=== PATIENT | female | born 1995 | race Caucasian/White ===

== ENCOUNTER 2020-04-22 21:39 | Emergency (ER) | payer SELFPAY ==
--- NOTE | 2020-04-22 23:34 | EDM.PDOC ---
ED HPI GENERAL MEDICAL PROBLEM - General Chief Complaint: Upper Extremity Injury/Pain Stated Complaint: SHOULDER INJURY Time Seen by Provider: 04/22/20 23:03 - History of Present Illness INITIAL COMMENTS - FREE TEXT/NARRATIVE: 24-year-old female presents the emergency room with a right shoulder injury Shortly before arrival the patient tripped over 1 of her kids toys and fell against the wall with her right shoulder. Patient denies any other injury with this most unfortunate mishap. Patient has significant pain in this right shoulder and she is concerned it might be dislocated. Patient does not have a history of prior injuries to the shoulder. Right Shoulder Pain Score (Numeric/FACES): 8 - Related Data Allergies Allergy/AdvReac Type Severity Reaction Status Date / Time No Known Allergies Allergy Verified 04/22/20 22:07 Home Meds: Home Meds . 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: Social & Family History - Family History Family Medical History: Noncontributory - Tobacco Use Smoking Status *Q: Never Smoker Second Hand Smoke Exposure: No - Caffeine Use Caffeine Use: Reports: Coffee, Energy Drinks, Soda, Tea - Recreational Drug Use Recreational Drug Use: No Review of Systems - Review of Systems Review Of Systems: See Below Constitutional: Reports: No Symptoms Respiratory: Reports: No Symptoms Cardiovascular: Reports: No Symptoms GI/Abdominal: Reports: No Symptoms Genitourinary: Reports: No Symptoms Musculoskeletal: Reports: No Symptoms Neurological: Reports: No Symptoms ED EXAM, GENERAL - Physical Exam Exam: See Below Exam Limited By: No Limitations General Appearance: Alert, No Apparent Distress Head: Atraumatic, Normocephalic Neck: Normal Inspection, Supple, Non-Tender, Full Range of Motion. No: Lymphadenopathy (L), Lymphadenopathy (R) Respiratory/Chest: No Respiratory Distress, Lungs Clear, Normal Breath Sounds Cardiovascular: Regular Rate, Rhythm, No Edema, No Murmur Extremities: Other (Examination of her right upper extremity shows normal neurologic and vascular status of the hand and forearm. She has significant discomfort around the shoulder and does not want a move at the shoulder does not appear displaced dislocated. She is got a small bruise on the anterior aspect of the shoulder. Patient has intact supination pronation of the forearm at the elbow and wrist. Examination of the shoulders is very uncomfortable and not tolerated at this point I am able to distract the shoulder slightly and she does not have any pain over the AC joint.) Course - Vital Signs Last Recorded V/S: Last Vital Signs Temp 37.1 C 04/22/20 22:01 Pulse 88 04/22/20 22:01 Resp 20 04/22/20 22:01 BP 119/77 04/22/20 22:01 Pulse Ox 99 04/22/20 22:01 - Orders/Labs/Meds Orders: Active Orders 24 hr Category Date Time Status Shoulder Comp Rt [CR] Stat Exams 04/22/20 22:20 Taken HCG QUALITATIVE,URINE [URCHEM] Stat Lab 04/22/20 22:21 Ordered Durable Medical Equipment for Discharge [DME for Oth 04/22/20 23:28 Ordered Discharge] [COMM] Stat - Re-Assessments/Exams Free Text/Narrative Re-Assessment/Exam: 04/22/20 23:32 X-rays examination of the shoulder is negative for acute fracture dislocation she has some laxity it looks like at the AC joint. Patient will be placed in a sling advised to follow-up in the clinic for recheck after the tenderness dec reases. Departure - Departure Time of Disposition: 23:32 Disposition: Home, Self-Care 01 Clinical Impression: Right shoulder injury - Discharge Information Referrals: PCP,None [Primary Care Provider] - Additional Instructions: Return to the emergency room with any questions problems or worsening symptoms. Follow-up in the hospital clinic in 1 week for recheck call tomorrow for an appointment [phone] Tylenol or Motrin as needed for pain Wear the sling at all times.. Sepsis Event Note (ED) - Evaluation Sepsis Screening Result: No Definite Risk - Focused Exam Vital Signs: Vital Signs Temp Pulse Resp BP Pulse Ox 04/22/20 22:01 37.1 C 88 20 119/77 99 - My Orders Last 24 Hours: My Active Orders 04/22/20 23:28 Durable Medical Equipment for Discharge [DME for Discharge] [COMM] Stat - Assessment/Plan Last 24 Hours: My Active Orders 04/22/20 23:28 Durable Medical Equipment for Discharge [DME for Discharge] [COMM] Stat
--- NOTE | 2020-04-23 08:16 | CR ---
Right shoulder: 3 views of the right shoulder were obtained. Comparison: No prior shoulder study. Distal clavicle is slightly elevated at the acromioclavicular joint compatible with mild acromioclavicular separation. Glenohumeral joint appears normal. No acute fracture or other abnormality is appreciated. Impression: 1. Mild acromioclavicular separation. Please correlate if this is acute or chronic. 2. Right shoulder study is otherwise unremarkable. Diagnostic code #3 This report was dictated in MDT
== END 2020-04-23 00:20 | disposition home or self-care (01) ==
LOC: JD.ED 21:39
DX: S40.011A Contusion of right shoulder, initial encounter (principal); W01.198A Fall on same level from slipping, tripping and stumbling with subsequent striking against other object, initial encounter
CPT/HCPCS: 73030-26-RT; 73030-RT; 99283-25

== ENCOUNTER 2021-09-26 07:28 | Inpatient (IN) | payer SELFPAY ==
[2021-09-26] MEDS ORDERED: Nalbuphine 10 MG/1 ML Vial IVPUSH PRN (07:49)
[2021-09-26] MEDS ORDERED: Sodium Chloride 0.9% 10 ML Syringe FLUSH PRN (07:49)
[2021-09-26] MEDS ORDERED: Oxytocin/Lactated Ringers 10 UNIT/1,000 ML BAG IV SCH (08:00)
[2021-09-26] MEDS: Lactated Ringers 1,000 ML IV SCH ×3 (08:06→10:39)
[2021-09-26] MEDS ORDERED: Bupivacaine/fentaNYL/NS 100 ML Bag EPIDUR PRN (08:32)
[2021-09-26] MEDS ORDERED: ePHEDrine 50 MG/ML SDV IVPUSH PRN (08:32)
[2021-09-26] MEDS ORDERED: diphenhydrAMINE 50 MG/ML SDV IVPUSH PRN (08:32)
[2021-09-26] MEDS ORDERED: fentaNYL 100 MCG/2 ML SDV EPIDUR PRN (08:32)
--- NOTE | 2021-09-26 08:44 | PCM.PREANE ---
Preanesthetic Assessment - Procedure Proposed Procedure: Labor epidural - Anesthesia/Transfusion/Family Hx Anesthesia History: Prior Anesthesia Without Reaction Family History of Anesthesia Reaction: No Transfusion History: No Prior Transfusion(s) Intubation History: Unknown - Review of Systems General: No Symptoms Pulmonary: No Symptoms Cardiovascular: No Symptoms Gastrointestinal: Abdominal Pain (uterine contractions) Neurological: No Symptoms Other: Reports: None - Physical Assessment NPO Status Date: 09/25/21 NPO Status Time: 19:00 Vital Signs: Last Vital Signs Temp 97.6 F 09/26/21 07:34 Pulse 96 09/26/21 07:34 Resp 18 09/26/21 07:34 BP 120/78 09/26/21 07:34 Pulse Ox 96 09/26/21 07:34 Height: 1.6 m Weight: 69.4 kg ASA Class: 2 Mental Status: Alert & Oriented x3 Airway Class: Mallampati = 2 Dentition: Reports: Caries Thyro-Mental Finger Breadths: 3 Mouth Opening Finger Breadths: 3 ROM/Head Extension: Full Lungs: Clear to Auscultation, Normal Respiratory Effort Cardiovascular: Regular Rate, Regular Rhythm, No Murmurs - Lab Values: Laboratory Last Values WBC 14.64 K/mm3 (3.98-10.04) H 09/26/21 08:05 RBC 4.64 M/mm3 (3.98-5.22) 09/26/21 08:05 Hgb 12.5 gm/dl (11.2-15.7) 09/26/21 08:05 Hct 39.9 % (34.1-44.9) 09/26/21 08:05 MCV 86.0 fl (79.4-94.8) 09/26/21 08:05 MCH 26.9 pg (25.6-32.2) 09/26/21 08:05 MCHC 31.3 g/dl (32.2-35.5) L 09/26/21 08:05 RDW Std Deviation 41.7 fL (36.4-46.3) 09/26/21 08:05 Plt Count 130 K/mm3 (182-369) L 09/26/21 08:05 MPV 10.7 fl (9.4-12.3) 09/26/21 08:05 Neut % (Auto) 85.2 % (34.0-71.1) H 09/26/21 08:05 Lymph % (Auto) 7.2 % (19.3-51.7) L 09/26/21 08:05 [place] % (Auto) 7.2 % (4.7-12.5) 09/26/21 08:05 Eos % (Auto) 0 (0.7-5.8) L 09/26/21 08:05 Baso % (Auto) 0.1 % (0.1-1.2) 09/26/21 08:05 Neut # (Auto) 12.46 K/mm3 (1.56-6.13) H 09/26/21 08:05 Lymph # (Auto) 1.06 K/mm3 (1.18-3.74) L 09/26/21 08:05 [place] # (Auto) 1.05 K/mm3 (0.24-0.36) H 09/26/21 08:05 Eos # (Auto) 0.00 K/mm3 (0.04-0.36) L 09/26/21 08:05 Baso # (Auto) 0.02 K/mm3 (0.01-0.08) 09/26/21 08:05 - Allergies Allergies/Adverse Reactions: Allergies Allergy/AdvReac Type Severity Reaction Status Date / Time No Known Allergies Allergy Verified 09/26/21 07:33 - Acknowledgements Anesthesia Type Planned: Epidural Pt an Appropriate Candidate for the Planned Anesthesia: Yes Alternatives and Risks of Anesthesia Discussed w Pt/Guardian: Yes Pt/Guardian Understands and Agrees with Anesthesia Plan: Yes PreAnesthesia Questionnaire HEENT History: Reports: Impaired Vision Cardiovascular History: Reports: None Respiratory History: Reports: None Gastrointestinal History: Reports: GERD Genitourinary History: Reports: None 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 OB/BYN History: Previous csection in 2018 Musculoskeletal History: Reports: None Neurological History: Reports: None Psychiatric History: Reports: None Endocrine/Metabolic History: Reports: None Hematologic History: Reports: Iron Deficiency, Other (See Below) Other Hematologic History: Low platelets Immunologic History: Reports: None Oncologic (Cancer) History: Reports: None Dermatologic History: Reports: None - Infectious Disease History Infectious Disease History: Reports: None - Past Surgical History Female Surgical History: Reports: Section - SUBSTANCE USE Tobacco Use Status *Q: Never Tobacco User Tobacco Use Within Last Twelve Months: No Second Hand Smoke Exposure: No Days Per Week of Alcohol Use: 0 Number of Drinks Per Day: 0 Total Drinks Per Week: 0 Recreational Drug Use History: No - HOME MEDS Home Medications: Home Meds Mv-Mn/Iron/FA/Herbal/Digestive [ One Tablet] 1 each PO DAILY 06/15/21 [History] - CURRENT (IN HOUSE) MEDS Current Meds: Current Medications Diphenhydramine HCl (Diphenhydramine 50 Mg/Ml Sdv) 25 mg IVPUSH Q6H PRN PRN Reason: pruritis Ephedrine Sulfate (Ephedrine 50 Mg/Ml Sdv) 5 mg IVPUSH ASDIRECTED PRN PRN Reason: Hypotension Fentanyl (Fentanyl 100 Mcg/2 Ml Sdv) 100 mcg EPIDUR Q3H PRN PRN Reason: Pain Fentanyl/Bupivacaine HCl (Bupivacaine/Fentanyl/Ns 100 Ml Bag) 100 ml EPIDUR ASDIRECTED PRN PRN Reason: Pain Lactated Ringer's (Ringers, Lactated) 1,000 mls @ 100 mls/hr IV ASDIRECTED GAVIN Last Admin: 09/26/21 08:06 Dose: 999 mls/hr Documented by: Oxytocin/Lactated Ringer's (Pitocin In Lr 10 Units/1,000 Ml) 10 unit in 1,000 mls @ 500 mls/hr IV .CONTINUOUS GAVIN Nalbuphine HCl (Nalbuphine 10 Mg/1 Ml Vial) 10 mg IVPUSH Q2H PRN PRN Reason: Pain Sodium Chloride (Sodium Chloride 0.9% 10 Ml Syringe) 10 ml FLUSH ASDIRECTED PRN PRN Reason: Keep Vein Open
--- NOTE | 2021-09-26 10:27 | PCM.LDHP ---
<Sarah Quintanilla - Last Filed: 09/26/21 09:55> L&D History of Present Illness - General Date of Service: 09/26/21 Admit Problem/Dx: Patient Status Order with Admit Dx/Problem 09/26/21 07:34 Patient Status [ADT] Routine 09/26/21 07:50 Patient Status [ADT] Routine Admission Diagnosis/Problem Admission Diagnosis/Problem Source of Information: Patient History Limitations: Reports: No Limitations - History of Present Illness Introduction:: Adalgisa is a 25 year old 4 para 1-1-1-2 female admitted this morning on 09/26/21 at 38 weeks 3 days gestational age with an JANETT of 10/07/21 based on exact LMP of 12/31/20. She began having contractions on and off yesterday, and this morning around 4 am, they became much stronger and more consistent. She arrived to the labor and delivery floor around 7:30 am. Aside from lower back and abdominal pain, she feels well. She has had regular care with Dr. Morgan. [employer]OR history: - patient has a history of , , and spontaneous . She recalls menarche in approximately fifth grade. She was not on contraception prior to this , and she had regular periods. LMP 12/31/20. Her due date is 10/07/21 based up LMP and supported by ultrasound performed on 03/18/21. Past obstetrics history: 1. 03/09/2018: male (Marcin) born 40w4d at 8lb 1oz via delivery for failure to progress - [facility] 2. 02/14/2019: male infant (Jamie) born 32w1d at 4lb 10oz via - no reason elucidated for labor - [facility] . 01/2020: SAB 4. Current course: Initially seen at 5w on 02/04/21, and seen on a regular basis following this. Vitals, fundal height, heart, and weight gain (28 lbs) all appropriate throughout . Blood type: O+ Antibody screen: negative Urine culture: negative Rubella status: equivocal Hepatitis B surface antigen: NR RPR: NR Hepatitis C: NR HIV: NR Gonorrhea: negative Chlamydia: positive on 03/18; negative on 05/19 Genetic testing: declined Anatomy ultrasound: done 03/18/21 One hour glucose tolerance test: 115 Hemoglobin: 14 --> 12.1 --> 11.8 (09/07/21) Platelets: 175 --> 124 --> 127 (09/07/21) GBS Status: negative Allergies: 1. No known allergies Medications: 1. Daily vitamin Past medical history: 1. Myopia of both eyes 2. Rubella non-immune status Past surgical history: 1. in 2018 Family history: Two siblings - 1 brother with thyroid disease and 1 sister with T1DM. Thyroid disease in mother and hypertension in father. Maternal grandparents are both , sometime in their 80s from cancer. Paternal grandfather is . Paternal grandmother is alive with dementia. No known problems regarding blood disorders, problems with in other family members. Social history: Patient's significant other is Tim. They live in [place]. Patient denies alcohol, drugs, and tobacco use. Review of systems: Positive for lower back and abdominal pain, but otherwise a comprehensive ROS is negative, including HEENT complaints, cough, shortness of breath, chest pain, extremity swelling, headaches. Physical Exam: General: well-developed, well-nourished, pleasant, gravid female Skin: warm, dry, no lesions HEENT, neck, and back within normal limits Lungs: clear to auscultation bilaterally CV: regular rate and rhythm without murmurs Abdomen: gravid Genital digital exam: 6 cm dilated, 100% effaced, soft, anterior, 0 station, cephalic presentation; AROM done with clear fluids Extremities: no edema, SCDs in place Neuro: no focal deficits noted Pain Score: 10 - Related Data Allergies/Adverse Reactions: Allergies Allergy/AdvReac Type Severity Reaction Status Date / Time No Known Allergies Allergy Verified 09/26/21 07:33 Home Medications: Home Meds Mv-Mn/Iron/FA/Herbal/Digestive [ One Tablet] 1 each PO DAILY 06/15/21 [History] Past Medical History HEENT History: Reports: Impaired Vision Cardiovascular History: Reports: None Respiratory History: Reports: None Gastrointestinal History: Reports: GERD Genitourinary History: Reports: None ELEMENT[employer] S[employer] 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 OB/BYN History: Previous csection in 2018 Musculoskeletal History: Reports: None Neurological History: Reports: None Psychiatric History: Reports: None Endocrine/Metabolic History: Reports: None Hematologic History: Reports: Iron Deficiency, Other (See Below) Other Hematologic History: Low platelets Immunologic History: Reports: None Oncologic (Cancer) History: Reports: None Dermatologic History: Reports: None - Infectious Disease History Infectious Disease History: Reports: None - Past Surgical History Female Surgical History: Reports: Section Social & Family History - Family History Family Medical History: No Pertinent Family History - Tobacco Use Tobacco Use Status *Q: Never Tobacco User Second Hand Smoke Exposure: No - Caffeine Use Caffeine Use: Reports: Coffee, Energy Drinks, Soda, Tea - Alcohol Use Days Per Week of Alcohol Use: 0 Number of Drinks Per Day: 0 Total Drinks Per Week: 0 - Recreational Drug Use Recreational Drug Use: No H&P Review of Systems - Review of Systems: Review Of Systems: See Below L&D Exam - Exam Exam: See Below - Vital Signs Vital Signs: Last Vital Signs Temp 97.6 F 09/26/21 07:34 Pulse 96 09/26/21 07:34 Resp 18 09/26/21 07:34 BP 120/78 09/26/21 07:34 Pulse Ox 96 09/26/21 07:34 Weight: 69.4 kg - Patient Data Lab Results Last 24 hrs: Laboratory Results - last 24 hr 09/26/21 09/26/21 09/26/21 Range/Units 07:42 08:05 08:05 WBC 14.64 H (3.98-10.04) K/mm3 RBC 4.64 (3.98-5.22) M/mm3 Hgb 12.5 (11.2-15.7) gm/dl Hct 39.9 (34.1-44.9) % MCV 86.0 (79.4-94.8) fl MCH 26.9 (25.6-32.2) pg MCHC 31.3 L (32.2-35.5) g/dl RDW Std Deviation 41.7 (36.4-46.3) fL Plt Count 130 L (182-369) K/mm3 MPV 10.7 (9.4-12.3) fl Neut % (Auto) 85.2 H (34.0-71.1) % Lymph % (Auto) 7.2 L (19.3-51.7) % Sawyer % (Auto) 7.2 (4.7-12.5) % Eos % (Auto) 0 L (0.7-5.8) Baso % (Auto) 0.1 (0.1-1.2) % Neut # (Auto) 12.46 H (1.56-6.13) K/mm3 Lymph # (Auto) 1.06 L (1.18-3.74) K/mm3 Sawyer # (Auto) 1.05 H (0.24-0.36) K/mm3 Eos # (Auto) 0.00 L (0.04-0.36) K/mm3 Baso # (Auto) 0.02 (0.01-0.08) K/mm3 SARS-CoV-2 RNA (JORGE) Negative (NEGATIVE) Blood Type O POSITIVE Gel Antibody Screen Negative Result Diagrams: 09/26/21 08:05 - Problem List (1) 38 weeks gestation of SNOMED Code(s): 02155195 ICD Code: Z3A.38 - 38 WEEKS GESTATION OF Status: Acute Current Visit: Yes (2) History of delivery SNOMED Code(s): 645670005 ICD Code: Z98.891 - HISTORY OF UTERINE SCAR FROM PREVIOUS SURGERY Status: Acute Current Visit: Yes (3) History of labor SNOMED Code(s): 398915832 ICD Code: Z87.51 - PERSONAL HISTORY OF PRE-TERM LABOR Status: Acute Current Visit: Yes (4) Hx successful (vaginal after ), currently SNOMED Code(s): 809057185, 635024079, 865047550 ICD Code: O34.219 - MATERNAL CARE FOR UNSP TYPE SCAR FROM PREVIOUS DEL Status: Acute Current Visit: Yes (5) Rubella non-immune status, antepartum SNOMED Code(s): 763055028 ICD Code: O99.891 - OTH DISEASES AND CONDITIONS COMPLICATING ; Z28.3 - UNDERIMMUNIZATION STATUS Status: Acute Current Visit: Yes Problem List Initiated/Reviewed/Updated: Yes Orders Last 24hrs: Active Orders 24 hr Category Date Time Status Patient Status [ADT] Routine ADT 09/26/21 07:50 Active Activity as Tolerated [RC] PFP Care 09/26/21 07:49 Active Antiembolic Devices [RC] PER UNIT ROUTINE Care 09/26/21 09:42 Active Communication Order [RC] ASDIRECTED Care 09/26/21 07:49 Active Heart Tones [RC] ASDIRECTED Care 09/26/21 07:50 Active Monitoring [RC] CONTINUOUS Care 09/26/21 07:52 Active Non Stress Test [RC] PER UNIT ROUTINE Care 09/26/21 07:34 Active Notify Provider [RC] ASDIRECTED Care 09/26/21 08:32 Active Notify Provider [RC] PFP Care 09/26/21 07:49 Active Notify Provider [RC] PRN Care 09/26/21 07:49 Active Peripheral IV Care [RC] . DIRECTED Care 09/26/21 07:50 Active Urinary Catheter Assessment [RC] ASDIRECTED Care 09/26/21 09:42 Active Urinary Catheter Insertion [Insert Urinary Catheter] [ Care 09/26/21 09:45 Ordered OM.PC] Q24H Verify Patient Consent Obtain [RC] ASDIRECTED Care 09/26/21 07:51 Active Vital Signs [RC] PER UNIT ROUTINE Care 09/26/21 07:34 Active Regular Diet [DIET] Diet 09/26/21 Breakfast Active RAPID PLASMA REAGIN,RPR [CHEM] Routine Lab 09/26/21 08:05 Received Bupivacaine/fentaNYL/NS [fentaNYL/Bupivacaine/NS 2 MCG- Med 09/26/21 08:32 Active 0.125% 100 ML] 100 ml EPIDUR ASDIRECTED PRN Lactated Ringers [Ringers, Lactated] 1,000 ml Med 09/26/21 08:00 Active IV ASDIRECTED Nalbuphine [Nubain] Med 09/26/21 07:49 Active 10 mg IVPUSH Q2H PRN Oxytocin/Lactated Ringers [Pitocin in LR 10 Units/1,000 Med 09/26/21 08:00 Active ML] 10 unit in 1,000 ml IV .CONTINUOUS Sodium Chloride 0.9% [Saline Flush] Med 09/26/21 07:49 Active 10 ml FLUSH ASDIRECTED PRN diphenhydrAMINE [Benadryl] Med 09/26/21 08:32 Active 25 mg IVPUSH Q6H PRN ePHEDrine [ePHEDrine sulfate] Med 09/26/21 08:32 Active 5 mg IVPUSH ASDIRECTED PRN fentaNYL [Sublimaze] Med 09/26/21 08:32 Active 100 mcg EPIDUR Q3H PRN Electronic Heart Tones Ext w TOCO [WOMSER] Oth 09/26/21 07:49 Ordered Routine Electronic Heart Tones Internal [WOMSER] Per Unit Oth 09/26/21 07:49 Ordered Routine Peripheral IV Insertion Adult [OM.PC] Routine Oth 09/26/21 07:49 Ordered SCD [Sequential Compression Device] [OM.PC] Routine Oth 09/26/21 09:42 Ordered Resuscitation Status Routine Resus Stat 09/26/21 07:34 Ordered Medication Orders Diphenhydramine HCl (Diphenhydramine 50 Mg/Ml Sdv) 25 mg IVPUSH Q6H PRN PRN Reason: pruritis Ephedrine Sulfate (Ephedrine 50 Mg/Ml Sdv) 5 mg IVPUSH ASDIRECTED PRN PRN Reason: Hypotension Fentanyl (Fentanyl 100 Mcg/2 Ml Sdv) 100 mcg EPIDUR Q3H PRN PRN Reason: Pain Last Admin: 09/26/21 08:47 Dose: 100 mcg Documented by: NORA Fentanyl/Bupivacaine HCl (Bupivacaine/Fentanyl/Ns 100 Ml Bag) 100 ml EPIDUR ASDIRECTED PRN PRN Reason: Pain Last Admin: 09/26/21 08:48 Dose: 100 ml Documented by: NORA Lactated Ringer's (Ringers, Lactated) 1,000 mls @ 100 mls/hr IV ASDIRECTED GAVIN Last Admin: 09/26/21 08:49 Dose: 999 mls/hr Documented by: Infusion: 09/26/21 08:49 Dose: 999 mls/hr Documented by: Admin: 09/26/21 08:06 Dose: 999 mls/hr Documented by: NORA Oxytocin/Lactated Ringer's (Pitocin In Lr 10 Units/1,000 Ml) 10 unit in 1,000 mls @ 500 mls/hr IV .CONTINUOUS GAVIN Nalbuphine HCl (Nalbuphine 10 Mg/1 Ml Vial) 10 mg IVPUSH Q2H PRN PRN Reason: Pain Sodium Chloride (Sodium Chloride 0.9% 10 Ml Syringe) 10 ml FLUSH ASDIRECTED PRN PRN Reason: Keep Vein Open Assessment/Plan Comment:: Assessment: 1Jake Diana is a 25 year old 4 para 1-1-1-2 female admitted the morning of 09/26/21 at 38 weeks 3 days gestational age with an JANETT of 10/07/21 based on exact LMP of 12/31/20 2. History of and subsequent 3. Rubella non-immune status 4. Desires epidural 5. Plans to breastfeed Plan: 1. Admit for labor at 38w3d. AROM done at approximately 9:30 am with clear fluids. Near continuous monitoring of heart tones. Routine labor care. 2. Proceed with TOLAC. Discussed this process and risks at length. 3. Plan to immunize following delivery. 4. Epidural in place. Pain management as needed. <Malachi Perera F - Last Filed: 09/26/21 14:13> L&D History of Present Illness - General Admit Problem/Dx: Patient Status Order with Admit Dx/Problem 09/26/21 07:34 Patient Status [ADT] Routine 09/26/21 07:50 Patient Status [ADT] Routine Admission Diagnosis/Problem Admission Diagnosis/Problem H&P Review of Systems - Review of Systems: Review Of Systems: See Below L&D Exam - Exam Exam: See Below - Vital Signs Vital Signs: Last Vital Signs Temp 36.4 C 09/26/21 07:34 Pulse 96 09/26/21 07:34 Resp 18 09/26/21 07:34 BP 120/78 09/26/21 07:34 Pulse Ox 96 09/26/21 07:34 - Patient Data Lab Results Last 24 hrs: Laboratory Results - last 24 hr 09/26/21 09/26/21 09/26/21 Range/Units 07:42 08:05 08:05 WBC 14.64 H (3.98-10.04) K/mm3 RBC 4.64 (3.98-5.22) M/mm3 Hgb 12.5 (11.2-15.7) gm/dl Hct 39.9 (34.1-44.9) % MCV 86.0 (79.4-94.8) fl MCH 26.9 (25.6-32.2) pg MCHC 31.3 L (32.2-35.5) g/dl RDW Std Deviation 41.7 (36.4-46.3) fL Plt Count 130 L (182-369) K/mm3 MPV 10.7 (9.4-12.3) fl Neut % (Auto) 85.2 H (34.0-71.1) % Lymph % (Auto) 7.2 L (19.3-51.7) % Sawyer % (Auto) 7.2 (4.7-12.5) % Eos % (Auto) 0 L (0.7-5.8) Baso % (Auto) 0.1 (0.1-1.2) % Neut # (Auto) 12.46 H (1.56-6.13) K/mm3 Lymph # (Auto) 1.06 L (1.18-3.74) K/mm3 Sawyer # (Auto) 1.05 H (0.24-0.36) K/mm3 Eos # (Auto) 0.00 L (0.04-0.36) K/mm3 Baso # (Auto) 0.02 (0.01-0.08) K/mm3 SARS-CoV-2 RNA (JORGE) Negative (NEGATIVE) Blood Type O POSITIVE Gel Antibody Screen Negative Result Diagrams: 09/26/21 08:05 Orders Last 24hrs: Active Orders 24 hr Category Date Time Status Patient Status Manage Transfer [TRANSFER] Routine ADT 09/26/21 14:10 Ordered Patient Status [ADT] Routine ADT 09/26/21 07:50 Active Activity as Tolerated [RC] PFP Care 09/26/21 07:49 Active Antiembolic Devices [RC] PER UNIT ROUTINE Care 09/26/21 09:42 Active Communication Order [RC] ASDIRECTED Care 09/26/21 07:49 Active Heart Tones [RC] ASDIRECTED Care 09/26/21 07:50 Active Monitoring [RC] CONTINUOUS Care 09/26/21 07:52 Active Non Stress Test [RC] PER UNIT ROUTINE Care 09/26/21 07:34 Active Notify Provider [RC] ASDIRECTED Care 09/26/21 08:32 Active Notify Provider [RC] PFP Care 09/26/21 07:49 Active Notify Provider [RC] PRN Care 09/26/21 07:49 Active Peripheral IV Care [RC] . DIRECTED Care 09/26/21 07:50 Active Urinary Catheter Assessment [RC] ASDIRECTED Care 09/26/21 09:42 Active Urinary Catheter Insertion [Insert Urinary Catheter] [ Care 09/26/21 09:45 Ordered OM.PC] Q24H Verify Patient Consent Obtain [RC] ASDIRECTED Care 09/26/21 07:51 Active Vital Signs [RC] PER UNIT ROUTINE Care 09/26/21 07:34 Active Regular Diet [DIET] Diet 09/26/21 Breakfast Active RAPID PLASMA REAGIN,RPR [CHEM] Routine Lab 09/26/21 08:05 Received Benzocaine/Menthol [Dermoplast Pain Relief 20%-0.5% Med 09/26/21 13:25 Active [place]] 0 gm TOP ASDIRECTED PRN Bupivacaine/fentaNYL/NS [fentaNYL/Bupivacaine/NS 2 MCG- Med 09/26/21 08:32 Active 0.125% 100 ML] 100 ml EPIDUR ASDIRECTED PRN Lactated Ringers [Ringers, Lactated] 1,000 ml Med 09/26/21 08:00 Active IV ASDIRECTED Nalbuphine [Nubain] Med 09/26/21 07:49 Active 10 mg IVPUSH Q2H PRN Oxytocin/Lactated Ringers [Pitocin in LR 10 Units/1,000 Med 09/26/21 08:00 Active ML] 10 unit in 1,000 ml IV .CONTINUOUS Sodium Chloride 0.9% [Saline Flush] Med 09/26/21 07:49 Active 10 ml FLUSH ASDIRECTED PRN diphenhydrAMINE [Benadryl] Med 09/26/21 08:32 Active 25 mg IVPUSH Q6H PRN ePHEDrine [ePHEDrine sulfate] Med 09/26/21 08:32 Active 5 mg IVPUSH ASDIRECTED PRN fentaNYL [Sublimaze] Med 09/26/21 08:32 Active 100 mcg EPIDUR Q3H PRN witch Arianne [Tucks] Med 09/26/21 13:24 Active 1 pad TOP ASDIRECTED PRN Electronic Heart Tones Ext w TOCO [WOMSER] Oth 09/26/21 07:49 Ordered Routine Electronic Heart Tones Internal [WOMSER] Per Unit Oth 09/26/21 07:49 Ordered Routine Peripheral IV Insertion Adult [OM.PC] Routine Oth 09/26/21 07:49 Ordered SCD [Sequential Compression Device] [OM.PC] Routine Oth 09/26/21 09:42 Ordered Resuscitation Status Routine Resus Stat 09/26/21 07:34 Ordered Medication Orders Benzocaine/Menthol (Benzocaine/Menthol 20%-0.5% [place] 78 Gm Cannister) 0 gm TOP ASDIRECTED PRN PRN Reason: Pain Diphenhydramine HCl (Diphenhydramine 50 Mg/Ml Sdv) 25 mg IVPUSH Q6H PRN PRN Reason: pruritis Ephedrine Sulfate (Ephedrine 50 Mg/Ml Sdv) 5 mg IVPUSH ASDIRECTED PRN PRN Reason: Hypotension Fentanyl (Fentanyl 100 Mcg/2 Ml Sdv) 100 mcg EPIDUR Q3H PRN PRN Reason: Pain Last Admin: 09/26/21 08:47 Dose: 100 mcg Documented by: NORA Fentanyl/Bupivacaine HCl (Bupivacaine/Fentanyl/Ns 100 Ml Bag) 100 ml EPIDUR ASDIRECTED PRN PRN Reason: Pain Last Admin: 09/26/21 08:48 Dose: 100 ml Documented by: NORA Lactated Ringer's (Ringers, Lactated) 1,000 mls @ 100 mls/hr IV ASDIRECTED GAVIN Last Admin: 09/26/21 10:39 Dose: 100 mls/hr Documented by: Infusion: 09/26/21 09:50 Dose: 100 mls/hr Documented by: Admin: 09/26/21 08:49 Dose: 999 mls/hr Documented by: Infusion: 09/26/21 08:49 Dose: 999 mls/hr Documented by: Admin: 09/26/21 08:06 Dose: 999 mls/hr Documented by: NORA Oxytocin/Lactated Ringer's (Pitocin In Lr 10 Units/1,000 Ml) 10 unit in 1,000 mls @ 500 mls/hr IV .CONTINUOUS GAVIN Last Admin: 09/26/21 11:26 Dose: 500 mls/hr Documented by: NORA Nalbuphine HCl (Nalbuphine 10 Mg/1 Ml Vial) 10 mg IVPUSH Q2H PRN PRN Reason: Pain Sodium Chloride (Sodium Chloride 0.9% 10 Ml Syringe) 10 ml FLUSH ASDIRECTED PRN PRN Reason: Keep Vein Open Jose Acuña (Jose Rubalcavael Medicated Pads 40/Jar) 1 pad TOP ASDIRECTED PRN PRN Reason: Hemorrhoids
[2021-09-26] MEDS ORDERED: Witch Hazel Medicated Pads 40/Jar TOP PRN (13:24)
[2021-09-26] MEDS ORDERED: Benzocaine/Menthol 20%-0.5% Spray 78 GM Cannister TOP PRN ×2 (13:25→14:39)
--- NOTE | 2021-09-26 14:22 | PCM.SN.2 ---
- Free Text/Narrative Note: Delivery note: Stage I: Adalgisa is a 25 year old 4 now para 2-1-1-3 female admitted this morning on 09/26/21 at 38 weeks 3 days gestational age with an JANETT of 10/07/21 based on exact LMP of 12/31/20 and supported by an early ultrasound. She has some occasional contractions throughout the last 24 hours but at approximately 0400 hrs. this a.m. patient had increasing labor and upon admission to L&D was noted to have contractions every 3 to 5 minutes. They were moderate in intensity. Patient cervix had changed from 3 cm on last evaluation clinic to 4 cm, 0 station, anterior position, 100% effaced, bulging bag earl. heart tones were generally reassuring. Patient was uncomfortable with contractions and was desiring epidural. Epidural was placed without problems with good results. Patient has a history of previous section with her first for CPD with an 8 pound 11 ounce baby. She had a successful with her second . Risk factors for the included history of section, history of delivery at 32 weeks. Her rubella status is equivocal. Group B strep screen was negative. Patient was allowed to progress in labor. Epidural was followed by AROM with resultant clear amniotic fluid. At approximately 1100 hrs. patient achieved complete cervical dilation. Some variable decelerations were noted and were progressive in nature. Some decelerations in between contractions were down to a 60 to 80 bpm range. Consent had been signed for a trial of labor after section for attempt at vaginal after section and for repeat section if it was to be necessary. Preoperative laboratory testing was done. Patient had near continuous electronic heart rate monitoring. Anesthesia was aware of the patient's presence in labor and delivery. Stage II: At 1124 hrs. on 09/26/2021 patient underwent a vacuum extraction delivery for persistent significant decelerations that were not returning to baseline. Prior to vacuum extraction delivery the procedure, its risk, benefits, alternatives of care were discussed with the patient and her significant other. They appear to understand and wished to proceed. A Silastic vacuum extractor was placed and with 1 contraction patient delivered a viable, dalton, male with Apgars of 8 and 9, a weight of 3170 g (6 pounds 15.8 ounces) and a length of 20.5 inches in a left occiput anterior position over an intact perineum. Pitocin was increased to 500/h with the routine solution concentration. This to facilitate increase in uterine tone and decrease likelihood of bleeding. Baby was placed on mom's abdomen. The umbilical cord is allowed to pulsate for approximately 3 minutes and then was clamped x2 and cut by the baby's father Tim. Umbilical cord had 3 vessels. Cord blood was obtained. Evaluation showed no evidence of significant lacerations and no suturing was required. Stage III: Adalgisa delivered the placenta at 1128 hrs. in a Chau presentation. It appeared intact and complete and was discarded per patient desire. Estimated blood loss was 200 cc. Patient plans to breast-feed. She received a MsJake Irvin immunization prior to discharge from the hospital. Condition: Good.
[2021-09-26] MEDS ORDERED: Acetaminophen 325 MG Tab PO PRN (14:39)
[2021-09-26] MEDS ORDERED: Docusate Sodium 100 MG Cap PO PRN (14:39)
[2021-09-26] MEDS: Ibuprofen 600 MG Tab PO PRN ×2 (15:27→20:34)
[2021-09-26] MEDS: Witch Hazel Medicated Pads 40/Jar TOP PRN (15:28)
[2021-09-26] MEDS ORDERED: Bupivacaine 0.25% 10 ML SDV ONE (17:00)
[2021-09-26] MEDS ORDERED: Calcium Carbonate 500 MG Tab.Chew PO PRN (19:07)
[2021-09-27] MEDS: Ibuprofen 600 MG Tab PO PRN ×2 (01:07→06:33)
--- NOTE | 2021-09-27 07:49 | PCM48HPAN ---
Post Anesthesia Note - EVALUATION WITHIN 48HRS OF ANESTHETIC Vital Signs in Normal Range: Yes Patient Participated in Evaluation: Yes Respiratory Function Stable: Yes Airway Patent: Yes Cardiovascular Function Stable: Yes Hydration Status Stable: Yes Pain Control Satisfactory: Yes Nausea and Vomiting Control Satisfactory: Yes Mental Status Recovered: Yes Vital Signs: Last Vital Signs Temp 97.9 F 09/27/21 04:27 Pulse 84 09/27/21 04:27 Resp 14 09/27/21 04:27 BP 110/71 09/27/21 04:27 Pulse Ox 99 09/27/21 04:27 - COMMENTS/OBSERVATIONS Free Text/Narrative:: Patient resting in bed holding baby when visiting with patient. Patient stated that she was "very happy" with her epidural and labor experience. Patient denied back pain in epidural placement site. Discussed signs and symptoms of infection, post-dural puncture headaches, post- depression, and if patient experiences increased back discomfort. Encouraged patient if any of those signs or symptoms develop to contact OB/Anesthesia so the patient can be treated accordingly if needed. Patient verbalized understanding. Patient did not voice any questions or concerns at this time. Karolina Aguilar, [facility]
[2021-09-27] MEDS ORDERED: Prenatal Multivitamin with Calcium/Folic Acid/Iron Tab PO SCH (09:00)
[2021-09-27] MEDS: Witch Hazel Medicated Pads 40/Jar TOP PRN (09:46)
--- NOTE | 2021-09-27 13:10 | PCM.DCSUM1 ---
Discharge Summary - Hospital Course Free Text/Narrative:: Stage I: Adalgisa is a 25 year old 4 now para 2-1-1-3 female admitted this morning on 09/26/21 at 38 weeks 3 days gestational age with an JANETT of 10/07/21 based on exact LMP of 12/31/20 and supported by an early ultrasound. She has some occasional contractions throughout the last 24 hours but at approximately 0400 hrs. this a.m. patient had increasing labor and upon admission to L&D was noted to have contractions every 3 to 5 minutes. They were moderate in intensity. Patient cervix had changed from 3 cm on last evaluation clinic to 4 cm, 0 station, anterior position, 100% effaced, bulging bag earl. heart tones were generally reassuring. Patient was uncomfortable with contractions and was desiring epidural. Epidural was placed without problems with good results. Patient has a history of previous section with her first for CPD with an 8 pound 11 ounce baby. She had a successful with her second . Risk factors for the included history of section, history of delivery at 32 weeks. Her rubella status is equivocal. Group B strep screen was negative. Patient was allowed to progress in labor. Epidural was followed by [facility]OM with resultant clear amniotic fluid. At approximately 1100 hrs. patient achieved complete cervical dilation. Some variable decelerations were noted and were progressive in nature. Some decelerations in between contractions were down to a 60 to 80 bpm range. Consent had been signed for a trial of labor after section for attempt at vaginal after section and for repeat section if it was to be necessary. Preoperative laboratory testing was done. Patient had near continuous electronic heart rate monitoring. Anesthesia was aware of the patient's presence in labor and delivery. Stage II: At 1124 hrs. on 09/26/2021 patient underwent a vacuum extraction delivery for persistent significant decelerations that were not returning to baseline. Prior to vacuum extraction delivery the procedure, its risk, benefits, alternatives of care were discussed with the patient and her significant other. They appear to understand and wished to proceed. A Silastic vacuum extractor was placed and with 1 contraction patient delivered a viable, dalton, male infant with Apgars of 8 and 9, a weight of 3170 g (6 pounds 15.8 ounces) and a length of 20.5 inches in a left occiput anterior position over an intact perineum. Pitocin was increased to 500/h with the routine solution concentration. This to facilitate increase in uterine tone and decrease likelihood of bleeding. Baby was placed on mom's abdomen. The umbilical cord is allowed to pulsate for approximately 3 minutes and then was clamped x2 and cut by the baby's father Tim. Umbilical cord had 3 vessels. Cord blood was obtained. Evaluation showed no evidence of significant lacerations and no suturing was required. Stage III: Adalgisa delivered the placenta at 1128 hrs. in a Chau presentation. It appeared intact and complete and was discarded per patient desire. Estimated blood loss was 200 cc. Patient plans to breast-feed. She will receive an MMR immunization prior to discharge from the hospital. patient's vital signs are stable. She is afebrile. She has minimal lochia. She is nursing without problems. She has a history of nursing with her previous pregnancies. Is desiring discharge home. Condition: Good. Diagnosis: Stroke: No - Discharge Data Discharge Date: 09/27/21 Discharge Disposition: Home, Self-Care 01 Condition: Good - Referral to Home Health Primary Care Physician: Ivana Morgan MD - Discharge Diagnosis/Problem(s) (1) 38 weeks gestation of SNOMED Code(s): 64833810 ICD Code: Z3A.38 - 38 WEEKS GESTATION OF Status: Acute Current Visit: Yes (2) History of delivery SNOMED Code(s): 598396956 ICD Code: Z98.891 - HISTORY OF UTERINE SCAR FROM PREVIOUS SURGERY Status: Acute Current Visit: Yes (3) History of labor SNOMED Code(s): 440034245 ICD Code: Z87.51 - PERSONAL HISTORY OF PRE-TERM LABOR Status: Acute Current Visit: Yes (4) Hx successful (vaginal after ), currently SNOMED Code(s): 036747579, 765081786, 392538037 ICD Code: O34.219 - MATERNAL CARE FOR UNSP TYPE SCAR FROM PREVIOUS DEL Status: Acute Current Visit: Yes (5) Rubella non-immune status, antepartum SNOMED Code(s): 302519187 ICD Code: O99.891 - OTH DISEASES AND CONDITIONS COMPLICATING ; Z28.3 - UNDERIMMUNIZATION STATUS Status: Acute Current Visit: Yes - Patient Instructions Diet: Regular Diet as Tolerated (Nursing diet with increased calories and calcium is recommended.) Driving: May Drive Today Showering/Bathing: May Shower (May take a bath) Notify Provider of: Fever, Increased Pain, Swelling and Redness, Nausea and/or Vomiting - Discharge Plan Home Medications: Home Meds Mv-Mn/Iron/FA/Herbal/Digestive [ One Tablet] 1 each PO DAILY 06/15/21 [History] Acetaminophen [Tylenol] 650 mg PO Q4H PRN tablet 09/27/21 [Rx] Ibuprofen [Motrin] 600 mg PO Q4H PRN tablet 09/27/21 [Rx] Referrals: Ivana Morgan MD [Primary Care Provider] - (Return to clinicDr. Morganpatient to call for appointment.) - Discharge Summary/Plan Comment DC Time >30 min.: No Total # of Minutes for Discharge Time: 10 Discharge Summary/Plan Comment: Discharge instructions: 1. Discharge home 2. Diet, activity and follow-up discussed with patient. Recommend nursing diet with increased calories and calcium. 3. Precautions given concern increased pain, bleeding, temperature, signs/symptoms of DVT/PE. 4. Medications per home medication was printed, discussed with and given to the patient. 5. [facility]. Diagnosis: 1. 38-week -term -delivered via 2. History of previous delivery #3. 3. History of previous with desire for 4. Desires to breast-feed 5. Rubella equivocalMMR ordered. Condition: Good - Patient Data Vitals - Most Recent: Last Vital Signs Temp 36.5 C 09/27/21 09:02 Pulse 94 09/27/21 09:02 Resp 14 09/27/21 09:02 BP 109/62 09/27/21 09:02 Pulse Ox 95 09/27/21 09:02 Weight - Most Recent: 69.4 kg I&O - Last 24 hours: Intake & Output 09/26/21 09/27/21 09/27/21 22:59 06:59 14:59 Intake Total 1180 Output Total 60 Balance 1120 Med Orders - Current: Current Medications Acetaminophen (Acetaminophen 325 Mg Tab) 650 mg PO Q4H PRN PRN Reason: mild pain or fever Benzocaine/Menthol (Benzocaine/Menthol 20%-0.5% [place] 78 Gm Cannister) 0 gm TOP ASDIRECTED PRN PRN Reason: Perineal Comfort Measure Last Admin: 09/26/21 15:27 Dose: 1 can Documented by: Calcium Carbonate/Glycine (Calcium Carbonate 500 Mg Tab.Chew) 1,000 mg PO Q2HR PRN PRN Reason: Indigestion Last Admin: 09/26/21 20:35 Dose: 1,000 mg Documented by: Docusate Sodium (Docusate Sodium 100 Mg Cap) 100 mg PO BID PRN PRN Reason: Constipation Ibuprofen (Ibuprofen 600 Mg Tab) 600 mg PO Q4H PRN PRN Reason: Mild pain or fever Last Admin: 09/27/21 06:33 Dose: 600 mg Documented by: Prenat Multivit/Brass Bobbin Winder/Iron/Folic Ac ( Multivitamin With Calcium/Folic Acid/Iron Tab) 1 each PO DAILY GAVIN Last Admin: 09/27/21 09:45 Dose: 1 each Documented by: Jose Acuña (Jose Acuña Medicated Pads 40/Jar) 1 pad TOP ASDIRECTED PRN PRN Reason: Perineal Comfort Measure Last Admin: 09/27/21 09:46 Dose: 1 tub Documented by: Discontinued Medications Benzocaine/Menthol (Benzocaine/Menthol 20%-0.5% [place] 78 Gm Cannister) 0 gm TOP ASDIRECTED PRN PRN Reason: Pain Diphenhydramine HCl (Diphenhydramine 50 Mg/Ml Sdv) 25 mg IVPUSH Q6H PRN PRN Reason: pruritis Ephedrine Sulfate (Ephedrine 50 Mg/Ml Sdv) 5 mg IVPUSH ASDIRECTED PRN PRN Reason: Hypotension Fentanyl (Fentanyl 100 Mcg/2 Ml Sdv) 100 mcg EPIDUR Q3H PRN PRN Reason: Pain Last Admin: 09/26/21 08:47 Dose: 100 mcg Documented by: Fentanyl/Bupivacaine HCl (Bupivacaine/Fentanyl/Ns 100 Ml Bag) 100 ml EPIDUR ASDIRECTED PRN PRN Reason: Pain Last Admin: 09/26/21 08:48 Dose: 100 ml Documented by: Lactated Ringer's (Ringers, Lactated) 1,000 mls @ 100 mls/hr IV ASDIRECTED GAVIN Last Admin: 09/26/21 10:39 Dose: 100 mls/hr Documented by: Oxytocin/Lactated Ringer's (Pitocin In Lr 10 Units/1,000 Ml) 10 unit in 1,000 mls @ 500 mls/hr IV .CONTINUOUS GAVIN Last Admin: 09/26/21 11:26 Dose: 500 mls/hr Documented by: Nalbuphine HCl (Nalbuphine 10 Mg/1 Ml Vial) 10 mg IVPUSH Q2H PRN PRN Reason: Pain Sodium Chloride (Sodium Chloride 0.9% 10 Ml Syringe) 10 ml FLUSH ASDIRECTED PRN PRN Reason: Keep Vein Open Witch Arianne (Witch Arianne Medicated Pads 40/Jar) 1 pad TOP ASDIRECTED PRN PRN Reason: Hemorrhoids
[2021-09-27] MEDS ORDERED: Measles, Mumps & Rubella Vaccine 0.5 ML SDV SUBCUT ONE (14:18)
== END 2021-09-27 15:35 | disposition home or self-care (01) | DRG 807 ==
LOC: JD.OB 07:28 → JD.OBCHECK 07:28 → JD.OB 07:50 → OBSVTOIN 11:24 → JD.OB 11:25
PROVIDERS: ADMIT Obstetrics & Gynecology; ATTEND Obstetrics & Gynecology
PROC: 10D07Z6 Extraction of Products of Conception, Vacuum, Via Natural or Artificial Opening (ICD-10-PCS; principal; 2021-09-26)
PROC: 10907ZC Drainage of Amniotic Fluid, Therapeutic from Products of Conception, Via Natural or Artificial Opening (ICD-10-PCS; 2021-09-26)
PROC: 3E0R3BZ Introduction of Anesthetic Agent into Spinal Canal, Percutaneous Approach (ICD-10-PCS; 2021-09-26)
PROC: 00HU33Z Insertion of Infusion Device into Spinal Canal, Percutaneous Approach (ICD-10-PCS; 2021-09-26)
PROC: 3E0234Z Introduction of Serum, Toxoid and Vaccine into Muscle, Percutaneous Approach (ICD-10-PCS; 2021-09-26)
DX: O34.211 Maternal care for low transverse scar from previous cesarean delivery (principal); Z37.0 Single live birth; O99.62 Diseases of the digestive system complicating childbirth; K21.9 Gastro-esophageal reflux disease without esophagitis; Z20.822 Contact with and (suspected) exposure to COVID-19; Z87.51 Personal history of pre-term labor; Z3A.38 38 weeks gestation of pregnancy; Z23 Encounter for immunization
CPT/HCPCS: 36415; 51702; 59025; 59409; 85025; 86592; 86850; 86900; 86901; 90471; 90707; A9270-GY; J2590; J3010; J3490; J7120; U0002

== ENCOUNTER 2024-02-08 07:29 | Inpatient (IN) | payer BC ==
[~2024-02-08 07:29] MED LIST: Lidocaine 1% 10 ML MDV ONE; Lidocaine 2% with EPINEPHrine 1:200,000 20 ML SDV ONE
[2024-02-08] MEDS ORDERED: Ondansetron 4 MG/2 ML SDV IVPUSH PRN (19:02)
[2024-02-08] MEDS ORDERED: Sodium Chloride 0.9% 10 ML Syringe FLUSH PRN (19:02)
[2024-02-08] MEDS ORDERED: Nalbuphine 10 MG/ML Syringe IVPUSH PRN (19:02)
[2024-02-08] MEDS ORDERED: Lidocaine 1% 50 ML MDV INJECT PRN (19:02)
[2024-02-08] MEDS ORDERED: Acetaminophen 325 MG Tab PO PRN (19:02)
[2024-02-08] MEDS ORDERED: Oxytocin/Lactated Ringers 30 UNIT/500 ML BAG IV SCH (19:15)
[2024-02-08] MEDS: Lactated Ringers 1,000 ML IV SCH (19:34)
[2024-02-08] MEDS: Oxytocin/Lactated Ringers 30 UNIT/500 ML BAG IV SCH (19:38)
[2024-02-08 19:41] LABS: BASOPHILS PERCENT AUTO 0.3 % (0.0-1.0); EOSINOPHILS PERCENT AUTO 0.4 % (0.0-6.0); HEMATOCRIT 33.4 % (37.0-47.0); HEMOGLOBIN 10.5 gm/dl (12.0-16.0); IMMATURE GRAN ABSOLUTE AUTO 0.03 K/mm3 (0.00-0.05); IMMATURE GRAN PERCENT AUTO 0.4 % (0.0-0.4); LYMPHOCYTES ABSOLUTE AUTO 1.5 K/mm3 (1.0-4.8); LYMPHOCYTES PERCENT AUTO 20.9 % (24.0-44.0); MEAN CORPUSCULAR HEMOGLOBIN 25.9 pg (28.0-32.0); MEAN CORPUSCULAR HGB CONC 31.4 g/dl (32.0-36.0); MEAN CORPUSCULAR VOLUME 82.5 fl (83.0-99.0); MEAN PLATELET VOLUME 11.3 fl (9.4-12.3); MONOCYTES ABSOLUTE AUTO 0.6 K/mm3 (0.0-0.8); MONOCYTES PERCENT AUTO 7.6 % (0.0-8.0); NEUTROPHILS ABSOLUTE AUTO 5.1 K/mm3 (1.8-7.7); NEUTROPHILS PERCENT AUTO 70.4 % (41.0-71.0); PLATELET COUNT,PLT 145 K/mm3 (150-400); RED BLOOD CELL COUNT 4.05 M/mm3 (4.10-5.30); WHITE BLOOD CELL COUNT,WBC 7.22 K/mm3 (3.9-11.3)
[2024-02-08] MEDS ORDERED: Sodium Chloride 0.9% 10 ML Syringe FLUSH SCH (21:00)
[2024-02-09] MEDS ORDERED: diphenhydrAMINE 50 MG/ML SDV IVPUSH PRN ×3 (00:37→09:06)
[2024-02-09] MEDS ORDERED: ePHEDrine 50 MG/ML SDV IVPUSH PRN ×2 (00:37→09:06)
[2024-02-09] MEDS ORDERED: Phenylephrine 1% 10 MG/ML SDV IVPUSH PRN (00:37)
[2024-02-09] MEDS: fentaNYL 100 MCG/2 ML SDV EPIDUR PRN (00:53)
[2024-02-09] MEDS: Bupivacaine/fentaNYL/NS 100 ML Bag EPIDUR PRN (01:09)
[2024-02-09] MEDS: fentaNYL 100 MCG/2 ML SDV ONE (01:59)
[2024-02-09] MEDS ORDERED: dexmedeTOMIDine HCl 200 MCG/2 ML SDV ONE (05:50)
[2024-02-09] MEDS ORDERED: fentaNYL 100 MCG/2 ML SDV ONE (05:50)
[2024-02-09] MEDS ORDERED: Sodium Bicarbonate 8.4% 50 MEQ/50 ML SDV ONE (06:57)
[2024-02-09] MEDS ORDERED: Lidocaine 2% with EPINEPHrine 1:200,000 20 ML SDV ONE (06:57)
[2024-02-09] MEDS: Metoclopramide 10 MG/2 ML SDV IVPUSH ONE (07:04)
[2024-02-09] MEDS: Citric Acid/Sodium Citrate Solution 30 ML Cup PO ONE (07:04)
[2024-02-09] MEDS ORDERED: ceFAZolin 2 GM in Sodium Chloride 0.9% 50 ML IV ONE (07:05)
[2024-02-09] MEDS ORDERED: Ondansetron 4 MG/2 ML SDV ONE (07:16)
[2024-02-09] MEDS ORDERED: ceFAZolin 2 GM Vial ONE (07:16)
[2024-02-09] MEDS ORDERED: Phenylephrine 1% 10 MG/ML SDV ONE (07:17)
[2024-02-09] MEDS: Azithromycin 500 MG in Sodium Chloride 0.9% 250 ML IV ONE (07:18)
[2024-02-09] MEDS ORDERED: Oxytocin 10 Units/1 ML SDV ONE (07:20)
[2024-02-09] MEDS ORDERED: Morphine PF 10 MG/10 ML SDV ONE (07:30)
[2024-02-09] MEDS ORDERED: Ketorolac 30 MG/ML SDV ONE (07:33)
[2024-02-09] MEDS ORDERED: Methylergonovine 0.2 MG/1 ML Amp ONE (07:36)
[2024-02-09] MEDS ORDERED: fentaNYL 100 MCG/2 ML SDV IVPUSH PRN (07:49)
[2024-02-09] MEDS ORDERED: Meperidine 50 MG/ML Vial IVPUSH PRN (07:49)
[2024-02-09] MEDS ORDERED: Ondansetron 4 MG/2 ML SDV IVPUSH PRN (07:49)
[2024-02-09] MEDS ORDERED: Lactated Ringers 1,000 ML IV ONE (08:00)
[2024-02-09] MEDS ORDERED: Docusate Sodium 100 MG Cap PO PRN (09:06)
[2024-02-09] MEDS ORDERED: Ondansetron 4 MG/2 ML SDV IV PRN (09:06)
[2024-02-09] MEDS ORDERED: Naloxone 0.4 MG/ML SDV IVPUSH PRN (09:06)
[2024-02-09] MEDS ORDERED: Acetaminophen/oxyCODONE 325-5 MG Tab PO PRN (09:06)
[2024-02-09] MEDS: Dextrose 5%-Lactated Ringers 1,000 ML IV SCH (09:51)
[2024-02-09] MEDS: Acetaminophen/oxyCODONE 325-5 MG Tab PO PRN (12:02)
[2024-02-09] MEDS: Ketorolac 30 MG/ML SDV IVPUSH SCH (13:59)
[2024-02-09] MEDS: Ibuprofen 600 MG Tab PO PRN (20:38)
[2024-02-10 05:40] LABS: BASOPHILS PERCENT AUTO 0.3 % (0.0-1.0); EOSINOPHILS PERCENT AUTO 0.5 % (0.0-6.0); HEMATOCRIT 25.3 % (37.0-47.0); HEMOGLOBIN 7.8 gm/dl (12.0-16.0); IMMATURE GRAN ABSOLUTE AUTO 0.05 K/mm3 (0.00-0.05); IMMATURE GRAN PERCENT AUTO 0.7 % (0.0-0.4); LYMPHOCYTES ABSOLUTE AUTO 1.2 K/mm3 (1.0-4.8); LYMPHOCYTES PERCENT AUTO 15.6 % (24.0-44.0); MEAN CORPUSCULAR HEMOGLOBIN 25.3 pg (28.0-32.0); MEAN CORPUSCULAR HGB CONC 30.8 g/dl (32.0-36.0); MEAN CORPUSCULAR VOLUME 82.1 fl (83.0-99.0); MONOCYTES ABSOLUTE AUTO 0.5 K/mm3 (0.0-0.8); MONOCYTES PERCENT AUTO 6.8 % (0.0-8.0); NEUTROPHILS ABSOLUTE AUTO 5.7 K/mm3 (1.8-7.7); NEUTROPHILS PERCENT AUTO 76.1 % (41.0-71.0); PLATELET COUNT,PLT 112 K/mm3 (150-400); RED BLOOD CELL COUNT 3.08 M/mm3 (4.10-5.30); WHITE BLOOD CELL COUNT,WBC 7.52 K/mm3 (3.9-11.3)
== END 2024-02-10 13:25 | disposition home or self-care (01) | DRG 540 ==
LOC: JD.OB 07:29 → OBSVTOIN 02-09 07:29 → JD.OB 02-09 07:30
PROVIDERS: ADMIT Obstetrics & Gynecology; ATTEND Obstetrics & Gynecology
PROC: 10907ZC Drainage of Amniotic Fluid, Therapeutic from Products of Conception, Via Natural or Artificial Opening (ICD-10-PCS; 2024-02-09)
PROC: 3E0R3BZ Introduction of Anesthetic Agent into Spinal Canal, Percutaneous Approach (ICD-10-PCS; 2024-02-09)
PROC: 00HU33Z Insertion of Infusion Device into Spinal Canal, Percutaneous Approach (ICD-10-PCS; 2024-02-09)
PROC: 10D00Z1 Extraction of Products of Conception, Low, Open Approach (ICD-10-PCS; principal; 2024-02-09 07:30)
DX: O34.211 Maternal care for low transverse scar from previous cesarean delivery (principal); D62 Acute posthemorrhagic anemia; O99.02 Anemia complicating childbirth; O32.4XX0 Maternal care for high head at term, not applicable or unspecified; O66.5 Attempted application of vacuum extractor and forceps; Z37.0 Single live birth; Z3A.39 39 weeks gestation of pregnancy; Z28.39 Other underimmunization status
CPT/HCPCS: 36415; 51702; 59025; 85025; 86592; 86850; 86900; 86901; 94762; A9270-GY; J0456; J0690; J1885; J2210; J2274; J2371; J2405; J2590; J2765; J3010; J3490; J7050; J7120; J7121; J7999